=== PATIENT | female | born 1940 | race Caucasian/White ===

== ENCOUNTER → 2016-06-09 | Outpatient (CLI) | payer MEDICARE, OTHER ==
[~2016-06-09] MED LIST: ASPI-558 PO; CALC-586 PO; CALC625T PO; CARV12.52 PO; ESCI20TA30 PO; EYEPROMISE RESTORE PO; FENO160T9 PO; IBUP-1724 PO; LOSA100T44 PO; MULT-1235 PO; NITR0.4T39 SL; OMEG-92 PO; OMEP20CA10 PO; OXYC-541 PO; [UNRECOGNIZED DRUG - CODE] BOTH EYES
== END ==
LOC: WC.BC 12:49
PROVIDERS: ATTEND Family Medicine
DX: Z12.31 Encounter for screening mammogram for malignant neoplasm of breast (principal); M85.88 Other specified disorders of bone density and structure, other site; M81.0 Age-related osteoporosis without current pathological fracture; N95.8 Other specified menopausal and perimenopausal disorders; Z90.722 Acquired absence of ovaries, bilateral; Z87.828 Personal history of other (healed) physical injury and trauma
CPT/HCPCS: 77063; 77080; G0202

== ENCOUNTER 2017-07-16 14:38 | Observation (INO) ==
[2017-07-16] MEDS ORDERED: SALINE FLUSH 10ml SYRINGE IVF PRN (15:00)
[2017-07-16] MEDS ORDERED: ASPIRIN 81 MG CHEWABLE TABLET PO ONE (15:00)
[2017-07-16] MEDS: NITROGLYCERIN 0.4 MG SUBLINGUAL TABLET SL PRN ×3 (15:07→16:23)
--- NOTE | 2017-07-16 15:52 | XRay Report ---
Indication: chest pain PROCEDURE: XR chest 1V: Encounter: Initial Comparison: November 27, 2016 Findings: The lungs are stable in appearance without new focal airspace consolidation. There is no pleural effusion or pneumothorax. The heart size, pulmonary vascularity and mediastinal contours are unchanged. Left pacemaker defibrillator. IMPRESSION: Stable appearance of the chest without acute cardiopulmonary disease. .
--- NOTE | 2017-07-16 16:20 | Emergency Department Report ---
Chest Pain HPI - General Chief Complaint: Chest Pain <Keegan Weston Q - 07/19/17 13:48> Stated Complaint: cp <Keegan Weston Q - 07/19/17 13:48> Time Seen by Provider: 07/16/17 15:00 <Keegan Weston Q - 07/19/17 13:48> Source: patient <Luanne Lopez V 07/16/17 16:23> Limitations: no limitations <Luanne Lopez V 07/16/17 16:23> - History of Present Illness HPI narrative: 77 yr old female who present to ER for eval of Left anterior chest pain that radiates under left armpit and down left arm. She similar pain last that lasted all day and then resolved. This morning, and then started while she was at rest. She is accompanied with some nausea. Has a known history of coronary artery disease as she did have a cardiac stent placed in 2009. She did undergo a cardiac catheterization by Dr. Silver in 2013 that was negative at that time. <ModocLuanne Gallegos 07/16/17 16:23> Occurred At: home <Luanne Lopez V 07/16/17 16:23> Onset (ago): hour(s) <ModocLuanne Gallegos 07/16/17 16:23> Duration: intermittent <ModocLuanne Gallegos 07/16/17 16:23> Onset: during rest <ModocLuanne Gallegos 07/16/17 16:23> Pain location: left chest <ModocLuanne Gallegos 07/16/17 16:23> Severity: moderate <ModocLuanne Gallegos 07/16/17 16:23> Severity scale (1-10): 6 <ModocLuanne Gallegos 07/16/17 16:23> Quality: tightness, aching <ModocLuanne Gallegos 07/16/17 16:23> Pain radiation: LUE <ModocLuanne Gallegos 07/16/17 16:23> Relieving factors: nitroglycerin <JohnLuanne Gallegos 07/16/17 16:23> Exacerbating factors: nothing <JohnLuanne Rosy 07/16/17 16:23> Associated symptoms: nausea <Luanne Lopez V - 07/16/17 16:23> Aspirin Today: provided by ED <Luanne Lopez V - 07/16/17 16:23> Treatments prior to arrival chest pain: none <Luanne Lopez 07/16/17 16:23 > - Related Data Home Medications Medication Instructions Recorded Confirmed Nitroglycerin 0.4 mg SL Q5MIN PRN #0 12/23/14 07/16/17 Carvedilol 12.5 mg PO BID #0 11/21/15 07/16/17 Aspirin [Aspirin EC] 81 mg PO DAILY 07/16/17 07/16/17 Atorvastatin Calcium 10 mg PO HS 07/16/17 07/16/17 Calcium Polycarbophil [Fiber] 1,250 mg PO DAILY 07/16/17 07/16/17 Escitalopram [Lexapro] 20 mg PO DAILY 07/16/17 07/16/17 Losartan [Cozaar] 50 mg PO DAILY 07/16/17 07/16/17 Meloxicam 7.5 mg PO DAILY 07/16/17 07/16/17 Multivitamin/Iron/Folic Acid 1 tab PO DAILY 07/16/17 07/16/17 [Centrum Women Tablet] Omeprazole [Prilosec] 20 mg PO DAILY 07/16/17 07/16/17 Vit A/C/E AC/Znox/Cupric Oxide 2 tab PO DAILY 07/16/17 07/16/17 [Eye Vitamin-Minerals Tablet] <Keegan Weston Q - 07/19/17 13:48> Allergies Allergy/AdvReac Type Severity Reaction Status Date / Time hydrocodone Allergy Intermediate Nausea and Verified 07/16/17 15:12 Vomiting adhesive Allergy Unknown Verified 07/16/17 15:02 <Keegan Weston Q - 07/19/17 13:48> Review of Systems All systems: reviewed and negative except as stated <Luanne Lopez 16:23> Cardiovascular: Reports: chest pain <Luanne Lopez 07/16/17 16:23> [facility] Patient Stated Medical History Cerebrovascular Accident No Cataracts Yes: BILAT Other HEENT Yes Angina Yes Cardiac Arrhythmia No Congestive Heart Failure Yes Coronary Artery Disease Yes Hypertension Yes Myocardial Infarction No Peripheral Vascular Disease No Diabetes Mellitus Type 1 No Diabetes Mellitus Type 2 No Gastroesophageal Reflux Yes Disease Hx Incontinence Yes Other Yes: BLADDER PROLAPSE Osteoarthritis Yes Recreational Drug Use No <Keegan Weston Q - 07/19/17 13:48> Patient Stated Medical History Cerebrovascular Accident No Cataracts Yes: BILAT Other HEENT Yes Angina Yes Cardiac Arrhythmia No Congestive Heart Failure Yes Coronary Artery Disease Yes Hypertension Yes Myocardial Infarction No Peripheral Vascular Disease No Diabetes Mellitus Type 1 No Diabetes Mellitus Type 2 No Gastroesophageal Reflux Yes Disease Hx Incontinence Yes Other Yes: BLADDER PROLAPSE Osteoarthritis Yes Recreational Drug Use No Coronary artery disease Hypertension <Luanne Lopez 07/16/17 16:23> Surgical History: The extent-2010. Pacemaker. Cholecystectomy. Hysterectomy. Cataracts. 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 Silver <Modoc07/16/17 16:23> Physical Exam - Limitations Limitations: no limitations <ModocLuanne 07/16/17 16:23> - General General appearance: alert, in no apparent distress <ModocLuanne 16:23> - Normal Exams: Head:: Normocephalic without trauma <ModocLuanne 07/16/17 16:23> Eyes:: Pupils are PERRLA w/ EOMI, No scleral icterus, irritation, or foreign bodies noted <JohnLuanne 07/16/17 16:23> Neck:: Full range of motion <Luanne Lopez 07/16/17 16:23> Chest/Respirations:: Clear all michelle <Luanne Lopez V 07/16/17 16:23> Cardiovascular:: Regular rate and rhythm <Luanne Lopez V 07/16/17 16:23> Abdomen:: Bowel sounds positive, soft, non-tender <Luanne Lopez V 07/16/17 16:23> Integumentary:: No rashes <Luanne Lopez V 07/16/17 16:23> Neurological:: Patient is alert, and oriented, cranial nerves <Luanne Lopez V 07/16/17 16:23> Psychiatric:: Patient exhibits, appropriate attention, emotion and affect < Luanne Lopez V 07/16/17 16:23> Course Course Narrative: Initially, chest pain, improved following 1st nitroglycerin from 6 out of 10 down to 1-2 out of 10. Nitroglycerin was given, however, she does not feel that pain improved. 1610- in to reexamine patient. She states the pain has increased to 6 out of 10 , again. Discussed with Dr. Silver. He recommends placing patient observation for cardiac rule out. If patient does rule out overnight. He can see patient at his office on Wednesday. 1615-She is in agreement with admission. [facility] She accepts pt for observation admission. <Luanne Lopez V 07/16/17 16:41> - Consultations Consultation #1: Nadeem <Luanne Lopez V 07/16/17 16:23> Time: 16:00 <Luanne Lopez V 07/16/17 16:23> Vital Signs Temperature 98.1 F 07/16/17 14:38 Pulse Rate 60 07/16/17 14:38 Respiratory Rate 20 07/16/17 14:38 Blood Pressure 197/88 H 07/16/17 14:38 Pulse Oximetry 99 07/16/17 14:38 Temperature 97.7 F 07/17/17 07:13 Pulse Rate 71 07/17/17 07:17 Respiratory Rate 18 07/17/17 07:13 Blood Pressure 158/109 H 07/17/17 07:13 Pulse Oximetry 95 07/17/17 07:13 <Keegan Weston Q - 07/19/17 13:48> Chest Pain - Differential Diagnosis Likely: pneumothorax, stable angina, unstable angina pectoris, atypical chest pain, st elevation myocardial infarction, costochondritis, chest pain <Luanne Lopez V - 07/16/17 16:23> - Lab Data Result diagrams: 07/16/17 14:52 07/16/17 14:52 <Keegan Weston Q - 07/19/17 13:48> Lab Results 07/16/17 07/16/17 Range/Units 14:52 14:52 WBC 8.0 (4.5-11.0) T/MM3 RBC 4.63 (4.00-5.20) M/MM3 Hgb 12.7 (12-16) GM/DL Hct 39.6 (36-46) % MCV 85.5 (80-100) UM3 MCH 27.4 (26-34) UUG MCHC 32.1 (31-37) GM/DL RDW Std Deviation 43.3 (36.9-50.2) FL Plt Count 251 (130-400) T/MM3 MPV 10.1 (9.4-12.4) UM3 Immature Gran % (Auto) 0.1 (0.0-0.5) % Neut % (Auto) 59.4 (33-66) % Lymph % (Auto) 29.6 (23-45) % Otoe % (Auto) 6.0 (0-9.0) % Eos % (Auto) 4.7 H (0-4) % Baso % (Auto) 0.2 (0-2) % Neut # (Auto) 4.8 (1.8-7.7) T/MM3 Lymph # (Auto) 2.4 (1-4.8) T/MM3 Otoe # (Auto) 0.5 (0-0.8) T/MM3 Eos # (Auto) 0.4 (0-0.5) T/MM3 Baso # (Auto) 0.0 (0-0.2) T/MM3 Abs Immat Gran (auto) 0.01 (0.00-0.03) T/MM3 Turbidity < 20 (0-20) Sodium 145 H (134-144) MEQ/L Potassium 4.1 (3.6-5) MEQ/L Chloride 108 H (98-107) MEQ/L Carbon Dioxide 26 (22-30) MEQ/L Anion Gap 11 (5-15) MEQ/L BUN 26.0 H (7-17) MG/DL Creatinine 0.8 (0.7-1.2) mg/dL GFR Calculation 69 BUN/Creatinine Ratio 33 H (6-26) RATIO Glucose 116 H (65-110) MG/DL Calculated Osmolality 285 H (261-280) MOSM/KG Calcium 9.3 (8.4-10.2) MG/DL Icterus Index < 2 (0-7) Troponin I < 0.012 (0-0.12) ng/ml NT-Pro-B Natriuret Pep 1000 H (0-175) pg/mL Specimen Hemolysis < 15 (0-25) <Yuval Westonn 07/19/17 13:48> - EKG Data EKG #1 EKG attestation: Yes: I reviewed and interpreted this EKG. <EnricoKeegan 07/19/17 13:48> EKG results narrative: Atrial ventricularly paced <EnricoKeegan 07/19/17 13:48> Disposition Clinical Impression: Chest pain Qualifiers: Chest pain type: unspecified Qualified Code(s): R07.9 - Chest pain, unspecified <Yuval Westonn 07/19/17 13:48> Disposition: 02 To [facility] <Yuval Westonn 07/19/17 13:48> Condition: Stable <Yuval Westonn 07/19/17 13:48> Instructions: <Yuval Westonn 07/19/17 13:48> Prescriptions: Continue Nitroglycerin 0.4 mg SL Q5MIN PRN #0 PRN Reason: Chest Pain Carvedilol 12.5 mg PO BID #0 Aspirin [Aspirin EC] 81 mg PO DAILY Calcium Polycarbophil [Fiber] 1,250 mg PO DAILY Meloxicam 7.5 mg PO DAILY Atorvastatin Calcium 10 mg PO HS Losartan [Cozaar] 50 mg PO DAILY Escitalopram [Lexapro] 20 mg PO DAILY Omeprazole [Prilosec] 20 mg PO DAILY Vit A/C/E AC/Znox/Cupric Oxide [Eye Vitamin-Minerals Tablet] 2 tab PO DAILY Multivitamin/Iron/Folic Acid [Centrum Women Tablet] 1 tab PO DAILY <Keegan Weston 07/19/17 13:48> Referrals: Kanchan Carson MD [Family Provider] - <Keegan Weston - 04/26 13:48> Forms: <Keegan Weston - 07/19/17 13:48> Time of Disposition: 16:00 <Luanne Lopez V - 07/16/17 16:23> - Seen By: midlevel <Luanne Lopez V - 07/16/17 16:23>
[2017-07-16 17:12] VITALS: BMI 27.0
[2017-07-16] MEDS ORDERED: ACETAMINOPHEN 325 MG TABLET PO PRN (17:44)
[2017-07-16] MEDS ORDERED: SENNA + DOCUSATE TABLET PO PRN (17:44)
[2017-07-16] MEDS ORDERED: ONDANSETRON 4 MG/2 ML INJECTION IVP PRN (17:44)
[2017-07-16] MEDS ORDERED: NS 1,000 ML IV SCH (17:45)
[2017-07-16] MEDS ORDERED: NITROGLYCERIN 0.4 MG SUBLINGUAL TABLET SL PRN ×2 (17:46→19:01)
--- NOTE | 2017-07-16 18:19 | History & Physical Report ---
History of Present Illness Date: 07/16/17 Chief complaint: chest pain HPI: Maryanne Foss is a pleasant 77-year-old female patient of Dr. Carson who presented to [facility] ED today, 07/16/17, for evaluation of left sided chest pain. She has a significant heart history including mitral valve prolapse, hypertension, CAD, systolic CHF and hyperlipidemia for which she follows with Dr. Silver. She reports that today, while sitting at home, she started to have sharp, left sided chest pain. She reports that her pain is worse with movement of her left arm causing the pain to extend into her left arm. She also complained of mild nausea which has since resolved. She denies any other complaints or concerns. No known injury or trauma. No shortness of breath, abdominal pain, vomiting, dysuria or diarrhea. No dizziness, lightheadedness, headache or syncope. Labs in ED were relatively unremarkable with the exception of mild hypernatremia (Na 145) and BNP 1000. Troponin was <0.012. She was given nitro x 1 in the ED with improvement in her pain. Given her significant cardiac history with current chest pain, Dr. Lundberg was consulted and she was admitted into observation status for further evaluation and treatment. Her length of stay is not expected to exceed more than 2 over nights. Review of Systems All systems PM: 10-point ROS was reviewed, no additional remarkable complaints except - Constitutional Constitutional: Absent: chills, fatigue, fever(s), lethargy, malaise, night sweats, weakness - EEVTT Eyes: Absent: diplopia, loss of vision, photophobia Ears: Absent: ear pain Balance: Absent: vertigo, falling to one side Nose: Absent: nosebleeds Mouth/Throat: Absent: sore throat, changes in swallowing, dry mouth - Cardiovascular Cardiovascular: Present: edema, heart murmur. Absent: palpitations, syncope, dyspnea on exertion, orthopnea Vascular: Present: pedal edema. Absent: pallor of an extermity, unilateral swelling - Respiratory Respiratory: Absent: cough, dyspnea, hemoptysis, dyspnea on exertion, wheezing, pain on inspiration, chest congestion - Gastrointestinal Gastrointestinal: Present: nausea (resolved). Absent: abdominal pain, change in bowel habits, diarrhea, melena, vomiting - Genitourinary Genitourinary: Absent: dysuria, flank pain, hematuria Menstruation: post hysterectomy - Musculoskeletal Musculoskeletal: Absent: back pain, deformity, muscle weakness - Integumentary/Breasts Integumentary: Absent: rash - Neurological Neurological: Absent: confusion, convulsions, dizziness, frequent falls, weakness - Psychiatric Psychiatric: Present: anxiety, depression - Endocrine Endocrine: Absent: flushing, heat intolerance, palpitations - Hematologic/Lymphatic Hematologic/Lymphatic: Absent: easy bruising - Allergic/Immunologic Allergic/Immunologic: Absent: seasonal rhinorrhea Past Medical History Patient Stated Medical History Angina. CHF, systolic. Hypertension. History of prior OR. GERD. Bladder prolapse. Depression. Cataracts. Macular degeneration. Osteoarthritis. Constipation. Hyperlipidemia. Surgical History: Pacemaker - 2009. Cholecystectomy. Hysterectomy. Cataracts. Knee surgery. Cardiac stent x - 2009. Heart cath (normal) - 2013. Appendectomy. Family History Updates: Father - , CAD. Mother - , age 93, unknown causes. Paternal grandmother - arthritis. Brother - , age 5, pneumonia. Brother - , age 15, ruptured appendicitis. 2 brothers and 1 sister living and reportedly healthy. - Social History Smoking status: Never smoker Substance use type: does not use Alcohol intake frequency: does not drink Housing: apartment ([place]) Household members: none Current occupational status: retired Does patient use chewing tobacco?: No Current residence: Independent Living ([facility]) Social history: PCP - Dr. Carson. Cardio - Dr. Silver. Medications Home Medications Medication Instructions Recorded Confirmed Type Nitroglycerin 0.4 mg SL Q5MIN PRN #0 12/23/14 07/16/17 History Carvedilol 12.5 mg PO BID #0 11/21/15 07/16/17 History Aspirin [Aspirin EC] 81 mg PO DAILY 07/16/17 07/16/17 History Atorvastatin Calcium [Atorvastatin 10 mg PO HS 07/16/17 07/16/17 History Calcium] Calcium Polycarbophil [Fiber] 1,250 mg PO DAILY 07/16/17 07/16/17 History Escitalopram [Lexapro] 20 mg PO DAILY 07/16/17 07/16/17 History Losartan [Cozaar] 50 mg PO DAILY 07/16/17 07/16/17 History Meloxicam [Meloxicam] 7.5 mg PO DAILY 07/16/17 07/16/17 History Multivitamin/Iron/Folic Acid 1 tab PO DAILY 07/16/17 07/16/17 History [Centrum Women Tablet] Omeprazole [Prilosec] 20 mg PO DAILY 07/16/17 07/16/17 History Vit A/C/E AC/Znox/Cupric Oxide 2 tab PO DAILY 07/16/17 07/16/17 History [Eye Vitamin-Minerals Tablet] Allergies Allergy/AdvReac Type Severity Reaction Status Date / Time hydrocodone Allergy Intermediate Nausea and Verified 07/16/17 15:12 Vomiting adhesive Allergy Unknown Verified 07/16/17 15:02 Exam Vital Signs: Temperature 98.3 F 07/16/17 17:09 Pulse Rate 60 07/16/17 17:53 Respiratory Rate 45 H 07/16/17 17:09 Blood Pressure 154/68 H 07/16/17 17:09 Pulse Oximetry 98 07/16/17 17:09 Height/Weight/BMI: Height 5 ft 2 in Weight 147 lb 11.355 oz Body Mass Index 27.0 Comments: Patient resting in bed with daughter at the bedside. Pleasant. - Constitutional Present: no acute distress, well nourished, well developed, cooperative - Routine HEENT Exam Head: Present: normocephalic, atraumatic Eye: Present: PERRL. Absent: conjunctival icterus ENT: Present: mucous membranes moist, oropharynx clear - Routine Neck Exam Present: supple, full ROM, trachea midline - Routine Chest/Breast/Axilla Exam Chest wall: Present: tenderness, pacemaker Comments: Pain with palpation to left anterior chest and ribs, reproducing pain. - Routine Respiratory Exam Present: CTA bilaterally. Absent: accessory muscle use, dyspnea, rales, respiratory distress, rhonchi, stridor, wheezes, crackles - Routine Cardiovascular Exam Present: S1, S2, murmur - Routine Abdominal Exam Present: soft, normoactive bowel sounds, non distended, non tender - Routine Extremities Exam Present: edema (trace bilaterally), non tender, full ROM, pulses intact - Routine Back/Spine/Pelvis Exam Back/Spine: Present: full ROM. Absent: vertebral tenderness - Routine Skin Exam Present: dry, warm. Absent: jaundice Comments: afebrile. - Routine Neurological Exam Present: alert, oriented X3, CN II-XII intact, moving all extremities, hearing grossly intact, normal speech - Routine Psychiatric Exam Present: normal affect, cooperative, good insight, good judgment Results - Labs CBC & Chem 7: 07/16/17 14:52 07/16/17 14:52 - Imaging and Cardiology Chest x-ray Status: image reviewed by me Additional comments: Date of Exam: 07/16/17 Type of Exam(s): XR chest 1V Reason for Exam(s): chest pain Findings: The lungs are stable in appearance without new focal airspace consolidation. There is no pleural effusion or pneumothorax. The heart size, pulmonary vascularity and mediastinal contours are unchanged. Left pacemaker defibrillator. IMPRESSION: Stable appearance of the chest without acute cardiopulmonary disease. Assessment and Plan (1) Chest pain Current visit: Yes Status: Acute (2) Acute hypernatremia Current visit: Yes Status: Acute Assessment and Plan: Assessment: Acute chest pain - most likely costochondritis - rule out cardiac event. Hypernatremia (Na 145) - present on admission. Angina. CHF, systolic. Hypertension. History of prior OR. GERD. Bladder prolapse. Depression. Cataracts. Macular degeneration. Osteoarthritis. Constipation. Hyperlipidemia. Plan - 07/16/17: Admit to observation status under the care of Dr. Lundberg for further evaluation of acute chest pain rule out. Clinical exam indicates pain most likely secondary to costochondritis. Given significant cardiac history, monitor closely on telemetry. Monitor serial troponins - initial troponin <0.012. Follows with Dr. Silver. Will hold off on consultation given negative troponin. Mild hypernatremia on admission - initiate NS 100cc/hr for hydration. Monitor closely for signs of fluid overload. Continue home medications. Monitor blood pressure closely. SCDs for DVT prophylaxis. Prilosec for GERD and GI protection. Upon discharge, patient's care will be returned to her PCP, Dr. Carson. At the time of admission, patient requests to be a FULL CODE status. DVT Prophylaxis: SCD's GI Prophylaxis: other (Prilosec) Resuscitation Status: Full Code - Time spent with patient Time with patient PN: 50 minutes - Physician Narrative Physician: Maria Elena Lundberg MD Narrative: Date: 07/16/17 Time: 1900 I have independently evaluated and examined this patient. I reviewed the chart, the patient's history, and the FRAME WIRER/PA's documented findings as above. We discussed and formulated the assessment and plan as above with additions as below: Mrs. Foss reports experiencing some stabbing chest pain 8-9 days ago with subsequent resolution. She was pain-free thereafter until today when she developed recurrent brief stabbing pains in the left precordium just below her pacemaker shortly after awakening. Each individual pain lasts only a second but pains are clustered. She has no associated cardiac symptoms and did not cite any triggering factors when I spoke with her. She denied pleuritic pain, heartburn, or palpitations. Prior to cardiac procedure in the past the patient describes extreme fatigue but she did not have chest pain comparable to current symptoms. Patient is alert and cooperative, respirations are nonlabored with good airflow and clear breath sounds. There is marked tenderness to palpation at the left fourth or fifth costal margin; regular cardiac rhythm, S1-S2 Benign abdomen EKG reviewed-paced rhythm with bundle branch block, no acute changes. Initial troponin unremarkable. Atypical chest pain, likely costochondritis. Given known history of coronary disease we'll obtain serial enzymes overnight and monitor with telemetry. Case discussed with Dr. Silver while patient was present in the emergency room, tentatively scheduled for follow-up in his office on Wednesday provided enzymes negative. Cardiac catheterization in 2013 without significant disease. Discussed with Dr. Weston, chest x-ray reviewed by myself-NAD. Hospital Course Summary Disclaimer: The visit summary below is not to be considered part of the above Progress Note. Hospital Course: Plan - 07/16/17: Admit to observation status under the care of Dr. Lundberg for further evaluation of acute chest pain rule out. Clinical exam indicates pain most likely secondary to costochondritis. Given significant cardiac history, monitor closely on telemetry. Monitor serial troponins - initial troponin <0.012. Follows with Dr. Silver. Will hold off on consultation given negative troponin. Mild hypernatremia on admission - initiate NS 100cc/hr for hydration. Monitor closely for signs of fluid overload. Continue home medications. Monitor blood pressure closely. SCDs for DVT prophylaxis. Prilosec for GERD and GI protection. Upon discharge, patient's care will be returned to her PCP, Dr. Carson. At the time of admission, patient requests to be a FULL CODE status.
[2017-07-16] MEDS: CARVEDILOL 12.5 MG TABLET PO SCH (18:52)
[2017-07-16] MEDS ORDERED: ATORVASTATIN 10 MG TABLET PO SCH (21:00)
[2017-07-17 00:29] VITALS: O2SAT 95
[2017-07-17] MEDS ORDERED: OMEPRAZOLE 20 MG CAPSULE PO SCH (06:30)
[2017-07-17 07:14] VITALS: BP 158/109; RESP 18; TEMP 97.7
[2017-07-17 07:17] VITALS: PULSE 71
[2017-07-17] MEDS: CARVEDILOL 12.5 MG TABLET PO SCH (08:16)
[2017-07-17] MEDS ORDERED: ESCITALOPRAM 20 MG TABLET PO SCH (09:00)
[2017-07-17] MEDS ORDERED: LOSARTAN 100 MG TABLET PO SCH (09:00)
[2017-07-17] MEDS ORDERED: ASPIRIN *EC* 81 MG TABLET PO SCH (09:00)
[2017-07-17] MEDS ORDERED: MELOXICAM 7.5 MG TABLET PO SCH (09:00)
--- NOTE | 2017-07-17 13:40 | Discharge Summary ---
Discharge Information Date of admission: 07/16/17 16:24 Anticipated date of discharge: 07/17/17 Attending Physician: Maria Elena Lundberg MD Primary care physician: Kanchan Carson MD - Discharge Diagnosis (1) Acute costochondritis Status: Acute (2) Chest pain Status: Acute (3) Acute hypernatremia Status: Acute Costochondritis, acute Acute chest pain Hypernatremia (Na 145) - present on admission CHF, systolic Hypertension CAD GERD Bladder prolapse Depression Macular degeneration Osteoarthritis Hyperlipidemia - Laboratory Labs: Troponin < 0.0123 ProBNP 1000 Sodium 145 on admission, creatinine 0.8 - Radiology Radiology: Portable chest x-ray on admission demonstrated no acute cardiopulmonary disease History of Present Illness HPI: Maryanne Foss is a pleasant 77-year-old female patient of Dr. Carson who presented to [facility] ED today, 07/16/17, for evaluation of left sided chest pain. She has a significant heart history including mitral valve prolapse, hypertension, CAD, systolic CHF and hyperlipidemia for which she follows with Dr. Silver. She reports that today, while sitting at home, she started to have sharp, left sided chest pain. She reports that her pain is worse with movement of her left arm causing the pain to extend into her left arm. She also complained of mild nausea which has since resolved. She denies any other complaints or concerns. No known injury or trauma. No shortness of breath, abdominal pain, vomiting, dysuria or diarrhea. No dizziness, lightheadedness, headache or syncope. Labs in ED were relatively unremarkable with the exception of mild hypernatremia (Na 145) and BNP 1000. Troponin was <0.012. She was given nitro x 1 in the ED with improvement in her pain. Given her significant cardiac history with current chest pain, Dr. Lundberg was consulted and she was admitted into observation status for further evaluation and treatment. Her length of stay is not expected to exceed more than 2 over nights. Objective Vital signs: Temperature 97.7 F 07/17/17 07:13 Pulse Rate 71 07/17/17 07:17 Respiratory Rate 18 07/17/17 07:13 Blood Pressure 158/109 H 07/17/17 07:13 Pulse Oximetry 95 07/17/17 07:13 NAD, alert, fluent speech Respirations nonlabored, good airflow, breath sounds clear Regular rhythm, S1-S2 Mild tenderness to palpation of the left upper costochondral margins-improved from yesterday Abdomen benign Height/Weight/BMI: Height 1.57 m Weight 65 kg Body Mass Index 27.0 Hospital Course This is a general summary of the patient's hospital course. For more details refer to the complete medical record. Hospital course: Mrs. Foss was hospitalized after presenting with sharp stabbing chest pains localized in the left chest just below the pacemaker. She reported she could put a finger on the location of the pain and that each pain lasted only a second or 2. Examination revealed tenderness on palpation of the chest over the fourth to fifth costal margins reproducing the pain the patient described. EKG demonstrated AV paced rhythm with bundle branch block. Serial troponins were unremarkable and pain subsided spontaneously overnight after inconsistent response to nitroglycerin administered in the emergency room. On 07/17 the patient denied dyspnea, ongoing chest pain, or palpitations. Patient 's blood pressures were somewhat variable with readings ranging from normal to moderately elevated prior to discharge. Patient noted that her blood pressures have been similarly erratic when she has monitor them periodically in the recent past. She is to follow-up with Dr. Silver on Wednesday for further cardiac reassessment and in the intervening time is asked to monitor her blood pressure daily. Repeat echocardiography may impact which of her medications will be modified to improve blood pressure control subsequently medications were not changed at this time. Patient was felt stable for discharge on 07/17 with instructions follow-up with Dr. Silver on 07/19 as tentatively coordinated at the time of hospitalization. She additionally is asked to follow up with Dr. Carson in 1-2 weeks for general reassessment. No change in home medications was made during the hospitalization. Resuscitation Status: Full Code Discharge Plan - Discharge Disposition Discharge Date: 07/17/17 Disposition: 01 Discharged Home, Self-Care *Condition: Stable Reason For Visit (Visit label in EMR): Chest Pain/chest wall pain - Discharge Medications *Discharge Medications: Continue Nitroglycerin 0.4 mg SL Q5MIN PRN #0 PRN Reason: Chest Pain Carvedilol 12.5 mg PO BID #0 Aspirin [Aspirin EC] 81 mg PO DAILY Calcium Polycarbophil [Fiber] 1,250 mg PO DAILY Meloxicam 7.5 mg PO DAILY Atorvastatin Calcium 10 mg PO HS Losartan [Cozaar] 50 mg PO DAILY Escitalopram [Lexapro] 20 mg PO DAILY Omeprazole [Prilosec] 20 mg PO DAILY Vit A/C/E AC/Znox/Cupric Oxide [Eye Vitamin-Minerals Tablet] 2 tab PO DAILY Multivitamin/Iron/Folic Acid [Centrum Women Tablet] 1 tab PO DAILY - Discharge Packet/Instructions *Diet: low fat *Activity: as tolerates *Pain Management/Treatment: continue meloxicam daily for arthritis, can add Tylenol if need something extra for pain control *Wound Care: not applicable Additional Instructions: monitor your blood pressure daily and take readings to the office next week when you see Dr. Silver in case medications need to be adjusted *Expected Signs/Symptoms: may have occassional chest wall pain from the joint as you experienced yesterday *Notify Physician if: crushing chest pain, difficulty breathing, sweats *During Business Hours Contact: Dr. Carson or Dr. Silver *After Business Hours Contact: Call [facility] at [phone] to have the business support liaison physician paged *Pending Lab/Results: No Pending Lab - Referrals/Follow Up *Referrals/Follow Up: Tamra Silver MD [Physician] - 3 Days (call his office Wednesday morning to schedule appt) Kanchan Carson MD [Family Provider] - (1-2 weeks) - Patient Handouts Patient Handouts: Chest Wall Pain (GEN) - Dismissal Complete Discharge Instructions are:: Complete Physician Narrative - Narrative Attestation Narrative: Date: 07/17/17 Time: 1571
== END 2017-07-17 10:42 | disposition home or self-care (01) ==
LOC: SRG 14:38 → ED 14:38 → SRG 17:05
PROVIDERS: ADMIT Internal Medicine; ATTEND Internal Medicine